=== PATIENT | female | born 1950 | race Caucasian/White ===

== ENCOUNTER 2018-09-06 06:25 | Emergency (ER) | payer MEDICARE, OTHER ==
[~2018-09-06] VITALS: Ht 167.6 cm; Wt 59.1 kg
[~2018-09-06 06:25] MED LIST: BENADRYL25 M1 PO; CALCIUM 600+D T1 TA1 PO; CIPRO500 MG; DEPADE50 MG PO; GLYCERIN RC; MACROBID100 MG PO; METHYLPREDNISOLONE PO; MIRALAX17 GM PO; VITAMIN D2 PO; VITAMIN D2000 UNIT PO; [UNRECOGNIZED DRUG - OTHER] PO
[2018-09-06 06:31] VITALS: Ht 167.6 cm; Wt 59.1 kg
[2018-09-06 07:04] LABS: BASOPHILS 0.2 % (0-2); EOSINOPHILS 0.4 % (0-7); HEMATOCRIT 40.1 % (36.0-48.0); HEMOGLOBIN 13.5 g/dL (12-16); IMMATURE GRANULOCYTES 0.3 % (0-5); LYMPHOCYTES 12.1 % (15-50); MCH 29.8 pg (26.0-34.0); MCHC 33.7 g/dL (31.0-37.0); MCV 88.5 fL (80.0-100.0); MONOCYTES 4.9 % (2-11); NEUTROPHILS 82.1 % (40-80); RBC 4.53 10x6/uL (4.00-5.40)
[2018-09-06 07:08] LABS: PLATELET COUNT 285 10x3/uL (130-400)
[2018-09-06 07:12] LABS: ALBUMIN 3.5 g/dL (3.4-5.0); ALKALINE PHOSPHATASE 107 U/L (46-116); ALT (SGPT) 21 U/L (10-68); AMYLASE - SERUM 75 U/L (25-115); BILIRUBIN - TOTAL 0.27 mg/dL (0.2-1.3); CALC OSMOLALITY 282 mosm/kg (275-300); CALCIUM 9.7 mg/dL (8.5-10.1); CARBON DIOXIDE 28.5 mmol/L (21.0-32.0); CHLORIDE - SERUM 106 mmol/L (98-107); CREATININE - SERUM 0.6 mg/dL (0.6-1.3); GLUCOSE 121 mg/dL (74-106); LIPASE 197 U/L (73-393); POTASSIUM - SERUM 4.2 mmol/L (3.5-5.1); PROTEIN - SERUM 6.5 g/dL (6.4-8.2); SODIUM 143 mmol/L (136-145); UREA NITROGEN 4 mg/dL (7-18); eGFR NON AFRICAN AMERICAN > 90 mL/min (90-120)
[2018-09-06 07:22] LABS: INR 1.02 (0.85-1.17)
[2018-09-06 07:23] LABS: APTT 29.1 SECONDS (22.8-39.4)
[2018-09-06 07:24] LABS: AMORPHOUS SEDIMENT <1+ /lpf (NONE SEEN); APPEARANCE SL CLDY (CLEAR); BACTERIA MANY /hpf (NONE SEEN); BILIRUBIN NEGATIVE (NEGATIVE); COLOR STRAW (YELLOW); EPITHELIAL CELLS 0-5 /hpf (0-5); GLUCOSE NEGATIVE (NEGATIVE); GRANULAR CAST 0-5 /lpf (NONE SEEN); HYALINE CAST OCC /lpf (NONE SEEN); KETONE MODERATE mg/dL (NEGATIVE); MUCUS <1+ /lpf (NONE SEEN); NITRITE POSITIVE (NEGATIVE); PROTEIN NEGATIVE (NEGATIVE); UROBILINOGEN NORMAL (NORMAL)
[2018-09-06] MEDS ORDERED: MACROBID100 MG PO (09:59)
[2018-09-06 10:16] VITALS: BP 122/50
== END 2018-09-06 10:16 | disposition home or self-care (01) ==
LOC: D.ER 06:25
PROVIDERS: Family Medicine
DX: N39.0 Urinary tract infection, site not specified (principal); G35 Multiple sclerosis; N93.9 Abnormal uterine and vaginal bleeding, unspecified

== ENCOUNTER 2018-09-10 12:17 | Emergency (ER) | payer MEDICARE, OTHER ==
[~2018-09-10] VITALS: Ht 167.6 cm; Wt 56.4 kg
[2018-09-10 12:41] VITALS: Ht 167.6 cm; Wt 56.4 kg
[2018-09-10 15:33] VITALS: BP 120/72
== END 2018-09-10 15:40 | disposition home or self-care (01) ==
LOC: D.ER 12:17
DX: K59.00 Constipation, unspecified (principal); G35 Multiple sclerosis; M19.90 Unspecified osteoarthritis, unspecified site

== ENCOUNTER 2020-01-28 21:16 | Inpatient (IN) | payer MEDICARE, OTHER ==
[~2020-01-28] VITALS: Ht 167.6 cm; Wt 39.0 kg
[~2020-01-28 21:16] MED LIST changes: +BACLOFEN10 MG; +GABAPENTIN100 MG PO; +NEURONTIN 300300 MG; +ULTRAM50 MG PO
[2020-01-28 22:03] LABS: SPECIFIC GRAVITY 1.015 (1.005-1.020)
[2020-01-28 22:03] LABS: HEMATOCRIT 40.4 % (36.0-48.0); HEMOGLOBIN 13.6 g/dL (12-16); MCH 28.8 pg (26.0-34.0); MCHC 33.7 g/dL (31.0-37.0); MCV 85.6 fL (80.0-100.0); MEAN PLATELET VOLUME 9.3 fL (7.4-10.4); PLATELET COUNT 304 10x3/uL (130-400); RBC 4.72 10x6/uL (4.00-5.40); RDW 12.4 % (11.5-14.5); WBC 24.1 10x3/uL (4.8-10.8)
[2020-01-28 22:04] LABS: BACTERIA MANY /hpf (NEGATIVE); BILIRUBIN NEGATIVE (NEGATIVE); EPITHELIAL CELLS 0-5 /hpf (0-5); GLUCOSE NEGATIVE (NEGATIVE); KETONE NEGATIVE (NEGATIVE); NITRITE POSITIVE (NEGATIVE); UROBILINOGEN NORMAL (NORMAL)
[2020-01-28 22:25] LABS: LYMPHOCYTES 4 % (15-50); MONOCYTES 6 % (2-11); NEUTROPHILS 73 % (40-80); PLATELET ESTIMATE NORMAL
[2020-01-28 22:57] LABS: CALC OSMOLALITY 254 mosm/kg (275-300); CALCIUM 9.3 mg/dL (8.5-10.1); CARBON DIOXIDE 26.2 mmol/L (21.0-32.0); CHLORIDE - SERUM 91 mmol/L (98-107); CREATININE - SERUM 0.7 mg/dL (0.6-1.3); GLUCOSE 127 mg/dL (74-106); POTASSIUM - SERUM 4.4 mmol/L (3.5-5.1); SODIUM 125 mmol/L (136-145); UREA NITROGEN 16 mg/dL (7-18); eGFR NON AFRICAN AMERICAN 88 mL/min (90-120)
[2020-01-28 23:03] LABS: ALBUMIN 3.2 g/dL (3.4-5.0); ALKALINE PHOSPHATASE 125 U/L (30-120); ALT (SGPT) 40 U/L (10-68); BILIRUBIN - TOTAL 0.77 mg/dL (0.2-1.3); PROTEIN - SERUM 7.2 g/dL (6.4-8.2)
--- NOTE | 2020-01-29 00:15 | NUR ---
ADMIT TO ROOM 2126 FROM ER PER STRETCHER. ALERT, MAX TRANSFER X 4 STAFF TO BED. ACCOMPANIED BY SPOUSE. ADMISSION ASSESSMENT AND HISTORY COMPLETED. MED REC UPDATED AND REVIEWED. PT CRIES OUT WHEN TURNED OR REPOSITIONED. PLAN OF CARE REVIEWED WITH . IVF NS @ 100ML/HR INFUSING TO RFA. PT IS VEGAN, SO SPECIAL DIET REQUEST HAS BEEN PLACED.
[2020-01-29 02:07] VITALS: BP 140/64; BMI 13.9
[2020-01-29 04:00] VITALS: BP 140/42
--- NOTE | 2020-01-29 06:00 | NUR ---
PT RESTING WITH NO DISTRESS. AT BEDSIDE. TURNED AND CLEAN/DRY. HUTSON PATENT.
[2020-01-29 06:27] LABS: CALC OSMOLALITY 259 mosm/kg (275-300); CALCIUM 8.8 mg/dL (8.5-10.1); CHLORIDE - SERUM 94 mmol/L (98-107); CREATININE - SERUM 0.5 mg/dL (0.6-1.3); GLUCOSE 92 mg/dL (74-106); POTASSIUM - SERUM 4.2 mmol/L (3.5-5.1); SODIUM 129 mmol/L (136-145); UREA NITROGEN 14 mg/dL (7-18)
[2020-01-29 06:28] LABS: eGFR NON AFRICAN AMERICAN > 90 mL/min (90-120)
[2020-01-29 06:42] LABS: WBC 21.5 10x3/uL (4.8-10.8)
[2020-01-29 06:43] LABS: BASOPHILS 0 % (0-2); EOSINOPHILS 0 % (0-7); HEMATOCRIT 35.7 % (36.0-48.0); HEMOGLOBIN 12.1 g/dL (12-16); IMMATURE GRANULOCYTES 0.7 % (0-5); LYMPHOCYTES 1.9 % (15-50); MCHC 33.9 g/dL (31.0-37.0); MCV 85.6 fL (80.0-100.0); MEAN PLATELET VOLUME 10.2 fL (7.4-10.4); MONOCYTES 1.4 % (2-11); PLATELET COUNT 284 10x3/uL (130-400); RBC 4.17 10x6/uL (4.00-5.40); RDW 12.6 % (11.5-14.5)
--- NOTE | 2020-01-29 07:30 | NUR ---
SPOKE WITH OUTSIDE ROOM, HE STATED CONCERNS FOR HER NOT HAVING A "BLOW UP" MATTRESS BECAUSE SHE IS ON ONE AT HOME AND HAS PRESSURE ULCERS ON BACK. CONTACTED NATALIA RODRIGUEZ APN. OBTAINED ORDER FOR 1ST STEP OVERLAY MATTRESS. MANAGER STARS MADE AWARE AND APPROPRIATE PAPERWORK FAXED TO [facility] AND MANAGER STARS PER MACHINE SPRING FORMER. 0800- PT RESTING, RR EVEN AND UNLABORED. DENIES NEEDS OR PAIN AT THIS TIME. REPOSITIONED ONTO LEFT SIDE FOR COMFORT. CALL LIGHT WITHIN REACH. AT BEDSIDE. WILL CONTINUE TO MONITOR. 0840- CAME TO NURSING STATION AND STATED SHE WAS HAVIGN DIFFICULTY SWALLOWING AND WAS CHOKING A LITTLE ON SMALL SIPS OF WATER. STATED SHE HAD HAD THESE SYMPTOMS THE LAST TIME SHE HAD FEVER AND INFECTION. ENCOURAGED TO LEAVE PT NPO AT THIS TIME SHE IS INFUSING NS @ 100MLS/HR THROUGH RIGHT FOREARM, UNTIL NATALIA BEY ARRIVES. WILL CONTINUE TO MONITOR.
--- NOTE | 2020-01-29 09:30 | NUR ---
POSITIONED ONTO LEFT SIDE FOR COMFORT. DENIES NEEDS OR PAIN AT THIS TIME. BED IN LOWEST POSITION. CALL LIGHT WITHIN REACH.
[2020-01-29 10:00] VITALS: BP 153/78
--- NOTE | 2020-01-29 10:40 | NUR ---
FIRST STEP OVERLAY RECIEVED AND PATIENT PLACED. WENT HOME. PT STATES SHE IS MORE COMFORTABLE. TURNED TO RIGHT SIDE TO COMFORT. CALL LIGHT WITHIN REACH. BED IN LOWEST POSITION. WILL CONTINUE TO MONITOR.
--- NOTE | 2020-01-29 12:00 | NUR ---
POSITIONED ONTO RIGHT SIDE FOR COMFORT. DENIES NEEDS OR PAIN AT THIS TIME. BED IN LOWEST POSITION. CALL LIGHT WITHIN REACH.
[2020-01-29 12:20] VITALS: BP 141/72
--- NOTE | 2020-01-29 14:15 | NUR ---
POSITIONED ONTO LEFT SIDE FOR COMFORT. DENIES NEEDS OR PAIN AT THIS TIME. BED IN LOWEST POSITION. CALL LIGHT WITHIN REACH.
--- NOTE | 2020-01-29 14:38 | NUR ---
I have reviewed this patient and I concur with the Shift Assessment completed by the Licensed Practical Nurse today this shift.
[2020-01-29 16:37] VITALS: BP 150/75
--- NOTE | 2020-01-29 16:45 | NUR ---
POSITIONED ONTO RIGHT SIDE FOR COMFORT. DENIES NEEDS OR PAIN AT THIS TIME. BED IN LOWEST POSITION. CALL LIGHT WITHIN REACH.
--- NOTE | 2020-01-29 19:00 | NUR ---
POSITIONED ONTO LEFT SIDE FOR COMFORT. DENIES NEEDS OR PAIN AT THIS TIME. BED IN LOWEST POSITION. CALL LIGHT WITHIN REACH.
--- NOTE | 2020-01-29 19:15 | NUR ---
RECEIVED REPORT, WILL ASSUME CARE OF PT, TURNED TO R.SIDE, BED IS LOW, SRX2, CALL LIGHT IN REACH, WILL CONTINUE PLAN OF CARE, AT BEDSIDE
[2020-01-29 20:00] VITALS: BP 136/61
[2020-01-30 00:30] VITALS: BP 132/58
[2020-01-30 04:00] VITALS: BP 135/61
[2020-01-30 05:00] LABS: BASOPHILS 0 % (0-2); EOSINOPHILS 0 % (0-7); HEMATOCRIT 31.7 % (36.0-48.0); HEMOGLOBIN 10.7 g/dL (12-16); IMMATURE GRANULOCYTES 0.3 % (0-5); LYMPHOCYTES 4.4 % (15-50); MCH 28.5 pg (26.0-34.0); MCHC 33.8 g/dL (31.0-37.0); MCV 84.5 fL (80.0-100.0); MEAN PLATELET VOLUME 9.6 fL (7.4-10.4); MONOCYTES 3.2 % (2-11); NEUTROPHILS 92.1 % (40-80); PLATELET COUNT 251 10x3/uL (130-400); RBC 3.75 10x6/uL (4.00-5.40); RDW 12.6 % (11.5-14.5)
[2020-01-30 05:01] LABS: WBC 15.6 10x3/uL (4.8-10.8)
--- NOTE | 2020-01-30 05:12 | NUR ---
I have reviewed this patient and I concur with the Shift Assessment completed by the Licensed Practical Nurse today this shift.
[2020-01-30 05:17] LABS: CALCIUM 8.2 mg/dL (8.5-10.1); CARBON DIOXIDE 23.8 mmol/L (21.0-32.0); CHLORIDE - SERUM 102 mmol/L (98-107); CREATININE - SERUM 0.5 mg/dL (0.6-1.3); SODIUM 133 mmol/L (136-145); UREA NITROGEN 13 mg/dL (7-18); eGFR NON AFRICAN AMERICAN > 90 mL/min (90-120)
[2020-01-30 05:21] LABS: CALC OSMOLALITY 268 mosm/kg (275-300); GLUCOSE 144 mg/dL (74-106); POTASSIUM - SERUM 3.1 mmol/L (3.5-5.1)
[2020-01-30 09:00] VITALS: BP 129/66
[2020-01-30 11:00] VITALS: BP 161/87
--- NOTE | 2020-01-30 13:50 | NUR ---
ALERT AND ORIENTED X4. SITTING UP IN WHEELCHAIR. SPOUSE AT BEDSIDE. INFORM DIAMOND, WOUND CARE NURSE OF CONSULT PER PATIENT REQUEST. DENIES ANY OTHER NEEDS. CONTINUE PLAN OF CARE AND SAFETY PRECAUTIONS.
[2020-01-30 14:53] VITALS: Ht 167.6 cm; Wt 39.0 kg
--- NOTE | 2020-01-30 19:00 | NUR ---
EVENING ROUNDS COMPLETE. PT SITTING UP IN BED. NO SIGNS OF DISTRESS. FAMILY AT BEDSIDE. PT DENIES ANY PAIN OR NEEDS AT THIS TIME. CL IN REACH, BED IN LOWEST POSITION. PT ASKING FOR ULTRAM, BENADRYL AND SOMETHING TO HELP HER GO TO THE BATHROOM. WILL PAGE NATALIA RODRIGUEZ APN FOR ORDERS.
[2020-01-30 20:00] VITALS: BP 153/81
--- NOTE | 2020-01-30 20:00 | NUR ---
NATALIA RODRIGUEZ APN ORDERED ULTRAM 50MG TID, 25MG OF BENADRYL QHS FOR SLEEP AND MIRALAX PRN BID.
[2020-01-31] VITALS: BP 147/82
[2020-01-31 04:00] VITALS: BP 146/77
[2020-01-31 06:20] LABS: BASOPHILS 0.1 % (0-2); EOSINOPHILS 0.1 % (0-7); HEMATOCRIT 33.4 % (36.0-48.0); HEMOGLOBIN 11.3 g/dL (12-16); IMMATURE GRANULOCYTES 0.3 % (0-5); LYMPHOCYTES 7.2 % (15-50); MCH 28.8 pg (26.0-34.0); MCHC 33.8 g/dL (31.0-37.0); MEAN PLATELET VOLUME 9.6 fL (7.4-10.4); MONOCYTES 4.2 % (2-11); NEUTROPHILS 88.1 % (40-80); PLATELET COUNT 273 10x3/uL (130-400); RBC 3.93 10x6/uL (4.00-5.40); RDW 12.6 % (11.5-14.5); WBC 13.5 10x3/uL (4.8-10.8)
[2020-01-31 06:38] LABS: CALC OSMOLALITY 272 mosm/kg (275-300); CALCIUM 7.8 mg/dL (8.5-10.1); CARBON DIOXIDE 23.3 mmol/L (21.0-32.0); CHLORIDE - SERUM 105 mmol/L (98-107); CREATININE - SERUM 0.4 mg/dL (0.6-1.3); GLUCOSE 130 mg/dL (74-106); SODIUM 136 mmol/L (136-145); UREA NITROGEN 11 mg/dL (7-18); eGFR NON AFRICAN AMERICAN > 90 mL/min (90-120)
[2020-01-31 07:27] LABS: POTASSIUM - SERUM 2.8 mmol/L (3.5-5.1)
--- NOTE | 2020-01-31 07:38 | NUR ---
CRITICAL K CALLED IN TO NATALIA FOX [facility], NEW ORDER TO INCREASE FLUID TO D5NS WIH 40KCL.
[2020-01-31 09:41] VITALS: BP 177/80
[2020-01-31 12:47] VITALS: BP 151/70
--- NOTE | 2020-01-31 13:52 | NUR ---
PT HAS HISTORY OF PRESSURE ULCERS. SHE HAS BEEN TREATED AT [facility] FOR SOME TIME NOW. 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 MEASURING 1CM X 1CM X 1CM X 2CM FROM 12-12 OCLOCK AND A STAGE 3 PRESSURE INJURY ON MIDDLE SPINE MEASURING 1CM X 1CM X 1CM X 2.7CM @ 10 OCLOCK. ALL WOUNDS ARE BEING TREATED WITH MAXORB AG CUT INTO STRIPS AND LOOSELY PACKED IN WOUNDS. WOUND CARE WILL CONTINUE MONITORING.
[2020-01-31 16:56] VITALS: BP 159/83
[2020-01-31 22:08] VITALS: BP 151/69
[2020-02-01] VITALS: BP 136/81
--- NOTE | 2020-02-01 03:21 | NUR ---
PT UP IN CHAIR, OFFERED SEVERAL TIMES TO ASSIST PT BACK TO BED, PT HAS REPEATEDLY STATED THAT SHE IS COMFORTABLE IN HER CHAIR, AND WANTS TO WAIT ON HER TO COME BACK BEFORE SHE GETS BACK TO BED.
[2020-02-01 05:25] LABS: BASOPHILS 0.1 % (0-2); EOSINOPHILS 0.9 % (0-7); HEMATOCRIT 34.5 % (36.0-48.0); HEMOGLOBIN 11.5 g/dL (12-16); IMMATURE GRANULOCYTES 0.5 % (0-5); LYMPHOCYTES 18.3 % (15-50); MCH 28.3 pg (26.0-34.0); MCHC 33.3 g/dL (31.0-37.0); MCV 84.8 fL (80.0-100.0); MEAN PLATELET VOLUME 9.9 fL (7.4-10.4); MONOCYTES 7.9 % (2-11); NEUTROPHILS 72.3 % (40-80); PLATELET COUNT 300 10x3/uL (130-400); RBC 4.07 10x6/uL (4.00-5.40); RDW 12.9 % (11.5-14.5)
[2020-02-01 05:31] VITALS: BP 148/84
[2020-02-01 05:37] LABS: WBC 7.4 10x3/uL (4.8-10.8)
[2020-02-01 05:42] LABS: CARBON DIOXIDE 25.8 mmol/L (21.0-32.0); CHLORIDE - SERUM 105 mmol/L (98-107); CREATININE - SERUM 0.4 mg/dL (0.6-1.3); GLUCOSE 129 mg/dL (74-106); SODIUM 136 mmol/L (136-145); eGFR NON AFRICAN AMERICAN > 90 mL/min (90-120)
[2020-02-01 05:44] LABS: CALC OSMOLALITY 271 mosm/kg (275-300); UREA NITROGEN 8 mg/dL (7-18)
--- NOTE | 2020-02-01 06:29 | NUR ---
I have reviewed this patient and I concur with the Shift Assessment completed by the Licensed Practical Nurse today this shift.
--- NOTE | 2020-02-01 07:10 | NUR ---
ASKED PT IF SHE WANTED TO GET BACK IN BED AND PT REFUSED.
--- NOTE | 2020-02-01 07:30 | NUR ---
FED PT BREAKFAST.
[2020-02-01 08:19] VITALS: BP 153/82
--- NOTE | 2020-02-01 11:45 | NUR ---
SPOKE WITH PT'S ON THE PHONE GAVE UPDATE.
[2020-02-01 12:21] VITALS: BP 129/89
[2020-02-01] MEDS ORDERED: LEVOFLOXACIN500 MG PO (12:56)
--- NOTE | 2020-02-01 13:36 | NUR ---
Nutrition Follow-up: Pt reports appetite is "waning" and that it is harder to swallow. Will not drink Ensure/Boost 2/2 not being vegan. Does not want to take an appetite stimulant. 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 Ate ~5% of breakfast this AM per record. Diet: Vegan No new wt; last wt: 85.9# (01/29) Last BM: 01/30 Labs noted: K+ 4.0, Glu 129, Ca 8.0 Meds noted: KCl -Food choices limited 2/2 vegan diet. Kitchen obtained vegan protein powder and provided vegan shake with lunch today. -Encourage PO intake and honor food preferences within diet restrictions. -Rec MIXOLOGIST eval. -Need new wt; noted daily wts ordered. -RD following.
--- NOTE | 2020-02-01 15:51 | NUR ---
pt's states he will be back at 1730 with the van to get pt for dc.
[2020-02-01 16:20] VITALS: BP 132/91
--- NOTE | 2020-02-01 17:05 | NUR ---
Rehab Note- Acute Inpatient Rehab prescreen order received. THe patient currently has pending PT Eval, will await to see the patient's physicla mobility at this time. Will follow. THank you for this referral! Stefany Palomino RN Clinical Liaison, [facility] Rehab
--- NOTE | 2020-02-01 17:36 | MORECARE ---
CASE MANAGEMENT DISCHARGE SUMMARY PATIENT: ALIZA CARPIO UNIT: [id number] ADM DATE: 01/28/20 AGE: 69 : 51 SEX: F ROOM/BED: D.7270 AUTHOR: JOSE JUAN,DOC PHYSICIAN: REFERRING PHYSICIAN: RENA CLARK MD DATE OF SERVICE: 02/01/20 Discharge Plan Patient Name: ALIZA CARPIO Facility: [facility]:[place] : 1950 Planned Disposition: Home with Home Health Anticipated Discharge Date: 02/01/20 Discharge Date: Expected LOS: 4 Initial Reviewer: [email or web address] Initial Review Date: 02/01/2020 Generated: 02/01/20 6:36 pm DCPIA - Discharge Planning Initial Assessment Updated by [id number]: William Nair on 02/01/20 5:35 pm * Is the patient Alert and Oriented? Yes * How many steps to enter\exit or inside your home? RAMP * PCP DR. GARLAND * Pharmacy [facility] [address] * Preadmission Environment Home with Family * ADLs Total Dependent * Equipment Other Power Chair or Electric Scooter Rolling Walker Shower Chair * Other Equipment TRANSFER DISK NO MEDICAL EQUIPMENT PROVIDER PREFERENCE * List name and contact numbers for known caregivers / representatives who currently or will assist patient after discharge: JESUS CARPIO, SPOUSE, * Verbal permission to speak to the caregivers and representatives has been obtained from the patient. Yes * Community resources currently utilized Home Health * Please name any agencies selected above. [facility] * Additional services required to return to the preadmission environment? No * Can the patient safely return to the preadmission environment? Yes * Has this patient been hospitalized within the prior 30 days at any hospital? Yes Coverage Notice Reviewer: [id number] - Michelle Chan Notice Issued Date-Time: 02/01/2020 15:00 Notice Type: Patient Choice Letter Notice Delivered To: Patient Relationship to Patient: Rn Flight Name: Delivery Method: HAND - Hand Delivered Bibiana Days: Prior Verbal Notification: Recipient Understood Notice: Yes Recipient Signature: Yes Med Rec Note Co-signed by Attending: Coverage Notice Comment: Reviewer: [id number] Javier Nair Notice Issued Date-Time: 02/01/2020 13:15 Notice Type: Patient Choice Letter Notice Delivered To: Patient Relationship to Patient: Rn Flight Name: Delivery Method: HAND - Hand Delivered Bibiana Days: Prior Verbal Notification: Recipient Understood Notice: Yes Recipient Signature: Med Rec Note Co-signed by Attending: Coverage Notice Comment: [facility], UNABLE TO SIGN DUE TO MS. Reviewer: [id number] Javier Nair Notice Issued Date-Time: 02/01/2020 13:15 Notice Type: IM Discharge Notice Notice Delivered To: Patient Relationship to Patient: Rn Flight Name: Delivery Method: HAND - Hand Delivered Bibiana Days: Prior Verbal Notification: Recipient Understood Notice: Yes Recipient Signature: Med Rec Note Co-signed by Attending: Coverage Notice Comment: Patient Name: ALIZA CARPIO Page [phone] at 1736 All edits/amendments must be made on the electronic document DICTATION DATE: 02/01/201735 GARNETTER: VENKAT 02/01/201735 RPT#: [id number] DC DATE: STATUS: ADM IN [facility] [address] [place] [address] END OF REPORT
--- NOTE | 2020-02-01 17:49 | MORECARE ---
CASE MANAGEMENT DISCHARGE SUMMARY PATIENT: ALIZA CARPIO UNIT: [id number] ADM DATE: 01/28/20 AGE: 69 : 51 SEX: F ROOM/BED: D.5338 AUTHOR: JOSEJ UAN,DOC PHYSICIAN: REFERRING PHYSICIAN: RENA CLARK MD DATE OF SERVICE: 02/01/20 Discharge Plan Patient Name: ALIZA CARPIO Facility: [facility]:[place] : 1950 Planned Disposition: Home with Home Health Anticipated Discharge Date: 02/01/20 Discharge Date: Expected LOS: 4 Initial Reviewer: [id number] Initial Review Date: 02/01/2020 Generated: 02/01/20 6:49 pm Comments DCP- Discharge Planning Updated by [id number]: William Nair on 02/01/20 4:[address] Patient Name: ALIZA CARPIO Admission Status: ER Accout number: [id number] Admission Date: 01-28-2020 : 1950 Admission Diagnosis: Attending: RADHA Current LOS: 4 Anticipated DC Date: 02-01-2020 Planned Disposition: Home with Home Health Primary Insurance: MEDICARE A & B PLANNED EXTERNAL PROVIDER: [facility] Discharge Planning Comments: CM RECEIVED DISCHARGE ORDER, MET WITH PT IN ROOM TO DISCUSS DISCHARGE PLANNING AND NEEDS. PT REPORTS LIVING AT HOME DEPENDENTLY WITH SPOUSE WHO ASSIST WITH MOST EVERYTHING. PT STATES SOMETIMES SHE CAN EAT BY HERSELF IF SHE FEELS WELL. PT REPORTS THAT SHE IS ABLE TO OPERATE HER POWER CHAIR INDEPENDENTLY ONCE IN IT. SOMETIMES SHE CAN TRANSFER WITH ASSISTANCE, SOMETIMES HER SPOUSE HAS TO LIFT HER AND PUT HER IN THE CHAIR. PT HAS POWER WHEELCHAIR, ROLLING WALKER THAT SHE HAS NOT USED IN A LONG TIME AND SHOWER CHAIR. PT ALSO HAS A TRANSFER DISK. PT HAS NO MEDICAL EQUIPMENT PROVIDER PREFERNECE. PT REPORTS THAT THEY DO SOMETIMES HIRE PRIVATE DUTY CARE WHEN NEEDED. CM DISCUSSED AVAILABILITY OF HOME HEALTH, REHAB SERVICES AND MEDICAL EQUIPMENT. PT DENIES NEED OF REHAB SERVICES AND WANTS TO GO HOME WITH [facility]. CHOICE COMPLETED. PT REPORTS HER SPOUSE WILL PICK HER UP FOR DISCHARGE HOME. IMPORTANT MESSAGE FROM MEDICARE PROVIDED AND EXPLAINED. CM EXPLAINED THAT PT'S SPOUSE HAD MENTIONED REHAB. PT WILL SPEAK TO HER SPOUSE AND INFORMED CM THAT CM CAN DISCUSS HER CARE AND TREATMENT WELL DISCHARGE PLAN WITH HER SPOUSE. CM CALLED JESUS. JEUSS STATES THAT PT HAS BEEN WEAK AND HE IS THINKING OF REHAB. JESUS WOULD LIKE REHAB AT [place] AND MAY CONSIDER [facility] TO GET PT STRONGER TO GO HOME. CM NOTIFIED SOTERO MONTELONGO AND RECEIVED ORDERS FOR PHYSICAL THERAPY EVAL, OCCUPATIONAL THERAPY EVAL AND INPATIENT REHAB PRESCREEN. PT SPOUSE ARRIVED, CM MET WITH PT AND SPOUSE IN ROOM, DISCUSSED INPATIENT AND [facility] REHAB. CM INFORMED OF VISITATION RESTRICTIONS DUE TO ONGOING PUBLIC HEALTH ISSUES AT THIS TIME. AFTER SOME DISCUSSION ALONE, PT AND SPOUSE NOTIFIED CM THAT PT WILL DISCHARGE HOME WITH SPOUSE AND RESUMPTION OF [facility]. CM NOTIFED BEDSIDE NURSE, REGULATORY SUBMISSIONS ASSOCIATE NURSE AND SOTERO MONTELONGO. CM CALLED [facility], , SPOKE TO ERIK, PROVIDED REFERRAL INFORMATION, PT TO BE RESUMED FOR HOME HEALTH TOMORROW. CM FAXED REFERRAL AND DISCHARGE INFORMATION TO [facility], . REGULATORY SUBMISSIONS ASSOCIATE NURSE NOTIFIED. Parts Sales Counterperson: William Nair DCPIA - Discharge Planning Initial Assessment Updated by [id number]: William Nair on 02/01/20 5:35 pm * Is the patient Alert and Oriented? Yes * How many steps to enter\exit or inside your home? RAMP * PCP DR. GARLAND * Pharmacy [facility] [address] * Preadmission Environment Home with Family * ADLs Total Dependent * Equipment Other Power Chair or Electric Scooter Rolling Walker Shower Chair * Other Equipment TRANSFER DISK NO MEDICAL EQUIPMENT PROVIDER PREFERENCE * List name and contact numbers for known caregivers / representatives who currently or will assist patient after discharge: JESUS CARPIO, SPOUSE, * Verbal permission to speak to the caregivers and representatives has been obtained from the patient. Yes * Community resources currently utilized Home Health * Please name any agencies selected above. [facility] * Additional services required to return to the preadmission environment? No * Can the patient safely return to the preadmission environment? Yes * Has this patient been hospitalized within the prior 30 days at any hospital? Yes External Providers External Provider: [facility] Next Contact Date: 02/01/2020 Service Request Date: Service Type: Resolution: Reviewer: Comments: Coverage Notice Reviewer: [id number] Javier Nair Notice Issued Date-Time: 02/01/2020 13:15 Notice Type: Patient Choice Letter Notice Delivered To: Patient Relationship to Patient: Flux Plant Operator Name: Delivery Method: HAND - Hand Delivered Bibiana Days: Prior Verbal Notification: Recipient Understood Notice: Yes Recipient Signature: Med Rec Note Co-signed by Attending: Coverage Notice Comment: [facility], PT UNABLE TO SIGN DUE TO MS. Reviewer: [id number] Javier Chan Notice Issued Date-Time: 02/01/2020 15:00 Notice Type: Patient Choice Letter Notice Delivered To: Patient Relationship to Patient: Flux Plant Operator Name: Delivery Method: HAND - Hand Delivered Bibiana Days: Prior Verbal Notification: Recipient Understood Notice: Yes Recipient Signature: Yes Med Rec Note Co-signed by Attending: Coverage Notice Comment: Reviewer: [id number] Javier Nair Notice Issued Date-Time: 02/01/2020 13:15 Notice Type: IM Discharge Notice Notice Delivered To: Patient Relationship to Patient: Flux Plant Operator Name: Delivery Method: HAND - Hand Delivered Bibiana Days: Prior Verbal Notification: Recipient Understood Notice: Yes Recipient Signature: Med Rec Note Co-signed by Attending: Coverage Notice Comment: Last DP export: 02/01/20 4:36 p Patient Name: ALIZA CARPIO Page [phone] at 1749 All edits/amendments must be made on the electronic document DICTATION DATE: 02/01/201748 MUMPS DEVELOPER: VENKAT 02/01/201748 RPT#: [id number] IN DATE: STATUS: ADM IN [facility] [address] [place] [address] END OF REPORT
--- NOTE | 2020-02-01 18:00 | NUR ---
TELEMETRY JUAN DIEGO'Nanci.
--- NOTE | 2020-02-01 18:29 | NUR ---
DISCHARGE INSTRUCTIONS SIGNED. CHART COPY SIGNED. PT NOR PT'S HAVE ANY FURTHER QUESTIONS. RIGHT FA 24G IV DC'D WITH CATH INTACT. PT TAKEN OUT WITH ALL OF BELONGINGS VIA ELECTRIC WC AND TRANSFERED X4 PEOPLE INTO 'S VAN.
== END 2020-02-01 18:30 | disposition home health service (06) | DRG 871 ==
LOC: D.ER 21:16 → D.M2 23:53
PROVIDERS: Family Medicine; Legal Medicine; ADMIT Emergency Medicine; ATTEND Emergency Medicine
DX: A41.9 Sepsis, unspecified organism (principal); E43 Unspecified severe protein-calorie malnutrition; N39.0 Urinary tract infection, site not specified; E87.1 Hypo-osmolality and hyponatremia; Z68.1 Body mass index [BMI] 19.9 or less, adult; G35 Multiple sclerosis

== ENCOUNTER → 2020-02-16 12:42 | Outpatient (CLI) | payer MEDICARE, OTHER ==
[2020-01-30 14:53] VITALS: BMI 13.8
[~2020-02-16 12:42] MED LIST changes: +LEVOFLOXACIN500 MG PO
[2020-02-16 13:12] LABS: BILIRUBIN NEGATIVE (NEGATIVE); GLUCOSE NEGATIVE (NEGATIVE); KETONE NEGATIVE (NEGATIVE); NITRITE NEGATIVE (NEGATIVE); UROBILINOGEN NORMAL (NORMAL)
[2020-02-16 13:13] LABS: AMORPHOUS SEDIMENT <1+ /lpf (NONE SEEN); BACTERIA FEW /hpf (NEGATIVE); RED CELLS - URINE RARE /hpf (0-5); WHITE CELLS - URINE RARE /hpf (NEGATIVE)
== END | disposition home or self-care (01) ==
LOC: D.LABREF 12:42
PROVIDERS: ATTEND Legal Medicine
DX: N39.0 Urinary tract infection, site not specified (principal); A41.9 Sepsis, unspecified organism

== ENCOUNTER → 2020-05-10 13:47 | Outpatient (CLI) | payer MEDICARE, OTHER ==
[2020-01-30 14:53] VITALS: BMI 13.8
[2020-05-10 18:43] LABS: BILIRUBIN NEGATIVE (NEGATIVE); GLUCOSE NEGATIVE (NEGATIVE); KETONE NEGATIVE (NEGATIVE); NITRITE POSITIVE (NEGATIVE); SPECIFIC GRAVITY 1.005 (1.005-1.020); UROBILINOGEN NORMAL (NORMAL)
[2020-05-10 18:49] LABS: EPITHELIAL CELLS NSEEN /hpf (0-5); RED CELLS - URINE 0-5 /hpf (0-5); WHITE CELLS - URINE 0-5 /hpf (NEGATIVE)
[2020-05-10 18:50] LABS: AMORPHOUS SEDIMENT >1+ /lpf (NONE SEEN); BACTERIA MODERATE /hpf (NEGATIVE)
== END | disposition home or self-care (01) ==
LOC: D.LABREF 13:47
PROVIDERS: ATTEND Emergency Medicine
DX: N39.0 Urinary tract infection, site not specified (principal)